=== PATIENT | female | born 1950 | race Caucasian/White ===

== ENCOUNTER 2024-06-19 12:26 | Outpatient (REF) | payer BC, SELFPAY ==
--- NOTE | ~2024-06-19 | US_ITS ---
Ultrasound-guided venaseal endovenous ablation right GSV HISTORY/INDICATIONS: Symptomatic varicose veins right lower extremity. Symptoms include pain, swelling and bleeding. SEDATION: 1% lidocaine PROCEDURE/FINDINGS: Informed consent was obtained following a discussion of the risks and benefits of the procedure with the patient. The patient was placed supine in the ultrasound procedure table. Preliminary ultrasound demonstrates a dilated refluxing greater saphenous vein in concordance with preprocedure imaging. A site was marked on the right leg at the level of the knee. The right greater saphenous vein was accessed with a 21-gauge micropuncture needle under direct ultrasound guidance with permanent recordings and direct visualization of the needle entry into the vessel lumen. The needle was exchanged for a transitional dilator over a 0.018 guidewire. The inner dilator and guidewire were removed and a 0.035 guidewire was advanced to the saphenofemoral junction. Then, a 7 [place] sheath was inserted. The venaseal delivery catheter was then placed through the sheath and positioned approximately 8 cm from the saphenofemoral junction. At this point the catheter/delivery device was withdrawn while delivering the venaseal glue while applying forward compression and compression at the saphenofemoral junction. The catheter/sheath was removed. Postprocedure images demonstrated successful occlusion of the greater saphenous vein with no evidence of glue delivery to the deep venous system and a compressible saphenofemoral junction. A dressing was applied. Patient tolerated procedure well with no immediate complications. US/US venaseal vein closure IMPRESSION: Successful VenaSeal ablation of the right greater saphenous vein. PLAN: Anticipate intervention of the right smaller saphenous vein and additional right lower extremity varicose veins Electronically signed by: Tyshawn Arndt MD 06/28/2024 01:14 PM EDT
[2024-06-19] MEDS: Lidocaine HCl 1 % MPF 30 ML VIAL SUBCUT (14:21)
== END 2024-06-19 12:27 | disposition home or self-care (01) ==
LOC: HO.US 12:26
PROVIDERS: PCP Nurse Practitioner Family; Visit Provider Student in an Organized Health Care Education/Training Program
DX: I83.891 Varicose veins of right lower extremity with other complications (principal); I83.811 Varicose veins of right lower extremity with pain
CPT/HCPCS: 36482

== ENCOUNTER → 2024-06-19 12:30 | Outpatient (BNV) | payer BC, SELFPAY | PROVIDERS: PCP Nurse Practitioner Family; Visit Provider Student in an Organized Health Care Education/Training Program | DX: I83.891 Varicose veins of right lower extremity with other complications (principal) | CPT/HCPCS: 36482 ==

== ENCOUNTER 2024-07-19 12:46 | Outpatient (REF) | payer BC, SELFPAY ==
--- NOTE | ~2024-07-19 | US_ITS ---
Ultrasound-guided venaseal endovenous ablation right SSV HISTORY/INDICATIONS: Symptomatic varicose veins right lower extremity. Symptoms include pain, swelling and bleeding. SEDATION: 1% lidocaine PROCEDURE/FINDINGS: Informed consent was obtained following a discussion of the risks and benefits of the procedure with the patient. The patient was placed prone on the ultrasound procedure table. Preliminary ultrasound demonstrates a dilated refluxing smaller saphenous vein in concordance with preprocedure imaging. A site was marked on the right leg above the ankle and the area was sterilely prepped and draped. The right smaller saphenous vein was accessed with a 21-gauge micropuncture needle under direct ultrasound guidance with permanent recordings and direct visualization of the needle entry into the vessel lumen. The needle was exchanged for a transitional dilator over a 0.018 guidewire. The inner dilator and guidewire were removed and a 0.035 guidewire was advanced to the saphenofemoral junction. Then, a 7 [place] sheath was inserted. The venaseal delivery catheter was then placed through the sheath and positioned approximately 8 cm from the saphenofemoral popliteal junction. At this point the catheter/delivery device was withdrawn while delivering the venaseal glue while applying forward compression and compression at the saphenofemoral popliteal junction. The catheter/sheath was removed. Postprocedure images demonstrated successful occlusion of the smaller saphenous vein with no evidence of glue delivery to the deep venous system and a compressible saphenofemoral popliteal junction. A dressing was applied. Patient tolerated procedure well with no immediate complications. US/US venaseal vein closure IMPRESSION: Successful VenaSeal ablation of the right smaller saphenous vein. PLAN: Follow-up ultrasound. Anticipate sclerotherapy of additional right lower extremity varicose veins Electronically signed by: Tyshawn Arndt MD 07/19/2024 03:18 PM EDT
[2024-07-19] MEDS: Lidocaine HCl 1 % MPF 5 ML VIAL 10 ML SUBCUT (14:22)
== END 2024-07-19 12:47 | disposition home or self-care (01) ==
LOC: HO.US 12:46
PROVIDERS: PCP Nurse Practitioner Family; Visit Provider Student in an Organized Health Care Education/Training Program
DX: I83.891 Varicose veins of right lower extremity with other complications (principal)
CPT/HCPCS: 36482

== ENCOUNTER → 2024-07-19 13:00 | Outpatient (BNV) | payer BC, SELFPAY | PROVIDERS: PCP Nurse Practitioner Family; Visit Provider Student in an Organized Health Care Education/Training Program | DX: I83.11 Varicose veins of right lower extremity with inflammation (principal) | CPT/HCPCS: 36482 ==

== ENCOUNTER 2024-07-25 10:15 | Outpatient (REF) | payer BC, SELFPAY ==
--- NOTE | ~2024-07-25 | US_ITS ---
EXAMINATION: US TRIPLEX LOWER EXTREMITY, RIGHT CLINICAL INFORMATION: Status post right small saphenous venaseal. Evaluate for residual varicose veins. COMPARISON: None available. TECHNIQUE: Color-flow triplex imaging with spectral analysis and compression Doppler were performed on the right lower extremity. FINDINGS: Respiratory variation, normal compression and augmented flow are noted throughout the right lower extremity. The visualized common femoral vein, superficial femoral vein, profunda femoral vein, popliteal vein and midcalf peroneal and posterior tibial venous segments show no evidence of deep venous thrombosis. Clusters of varicosities in the right medial distal calf and the right lateral distal calf measuring up to 0.3 cm. US/US venous duplex LE RT IMPRESSION: 1. The small saphenous vein is occluded after venaseal procedure. 2. Clusters of varicosities in the right medial distal calf and the right lateral distal calf measuring up to 0.3 cm. Electronically signed by: Tito Melendez MD 07/26/2024 01:50 PM EDT
== END 2024-07-25 10:16 | disposition home or self-care (01) ==
LOC: HO.US 10:15
PROVIDERS: PCP Nurse Practitioner Family; Visit Provider Student in an Organized Health Care Education/Training Program
DX: I83.91 Asymptomatic varicose veins of right lower extremity (principal); Z98.890 Other specified postprocedural states
CPT/HCPCS: 93971

== ENCOUNTER 2024-08-16 12:38 | Outpatient (REF) | payer BC, SELFPAY ==
--- NOTE | ~2024-08-16 | US_ITS ---
Ultrasound-guided foam sclerotherapy right lower extremity HISTORY/INDICATIONS: Symptomatic varicose veins right lower extremity. Symptoms include pain, swelling and bleeding. SEDATION: 1% lidocaine PROCEDURE/FINDINGS: Informed consent was obtained following a discussion of the risks and benefits of the procedure with the patient. The patient was placed supine in the ultrasound procedure table. Preliminary ultrasound demonstrates varicose veins in the lower extremity in the area of the lower extension and lower calf. The right lower leg was sterilely prepped and draped. The varicosities were accessed with a 23-gauge butterfly needle under direct ultrasound guidance. 2 accesses were obtained. foam was prepared by the sweatband decorating machine operator with 1% Sotradecol and room air in a 1-4 ratio. Approximately 4 mL was delivered via the 2 accesses into the varicose veins via the 2 butterfly needles. The treated veins include tributary varicosities of both the GSV and SSV. A dressing and cause compression was applied. Patient tolerated procedure well with no immediate complications. US/US Vein Inj Sclerosant Multi IMPRESSION: Successful ultrasound-guided foam sclerotherapy right lower extremity varicose veins. PLAN: Follow-up clinic visit in 6-12 weeks Electronically signed by: Tyshawn Arndt MD 08/16/2024 02:19 PM EDT
[2024-08-16] MEDS: Sodium Tetradecyl Sulfate 1% 2 ML VIAL INTRAVARIC (15:05)
== END 2024-08-16 12:39 | disposition home or self-care (01) ==
LOC: HO.US 12:38
PROVIDERS: PCP Nurse Practitioner Family; Visit Provider Student in an Organized Health Care Education/Training Program
DX: I83.811 Varicose veins of right lower extremity with pain (principal); I83.891 Varicose veins of right lower extremity with other complications
CPT/HCPCS: 36471; 36482

== ENCOUNTER → 2024-08-16 12:40 | Outpatient (BNV) | payer BC, SELFPAY | PROVIDERS: PCP Nurse Practitioner Family; Visit Provider Student in an Organized Health Care Education/Training Program | DX: I83.811 Varicose veins of right lower extremity with pain (principal) | CPT/HCPCS: 36466 ==